=== PATIENT | female | born 1975 | race Two or more races ===

== ENCOUNTER 2017-09-16 05:30 | Emergency (ER) | payer OTHER ==
[~2017-09-16] VITALS: Ht 175.3 cm; Wt 142.9 kg
[~2017-09-16 05:30] MED LIST: ALLEGRA-D1 TAB.SR . PO; BUCALSEP SPRAY30 ML MM; CEFADROXIL500 MG PO; LOSARTAN POTASS50 MG; NAPROXEN SODIU550 MG PO; ORASEP SPRAY30 ML MM; ORPH100T PO
== END 2017-09-16 11:04 | disposition home or self-care (01) ==
LOC: ER 05:30
DX: J06.9 Acute upper respiratory infection, unspecified (principal)

== ENCOUNTER 2019-12-03 13:33 | Emergency (ER) | payer OTHER ==
[~2019-12-03] VITALS: Ht 172.7 cm; Wt 149.7 kg
[2019-12-03] MEDS ORDERED: MUPIROCIN15 GM TOP (17:01)
[2019-12-03] MEDS ORDERED: INTESTINEX680 M1 PO (17:01)
[2019-12-03] MEDS ORDERED: KETO10TA2 PO (17:01)
[2019-12-03] MEDS ORDERED: CLINDAMYCIN HC150 MG PO (17:01)
== END 2019-12-03 17:11 | disposition home or self-care (01) ==
LOC: ER 13:33
DX: T16.2XXA Foreign body in left ear, initial encounter (principal); T16.1XXA Foreign body in right ear, initial encounter; H60.13 Cellulitis of external ear, bilateral; X58.XXXA Exposure to other specified factors, initial encounter; Y93.89 Activity, other specified; Y92.89 Other specified places as the place of occurrence of the external cause; Y99.8 Other external cause status

== ENCOUNTER 2021-06-10 10:38 | Emergency (ER) | payer OTHER ==
[~2021-06-10] VITALS: Ht 175.3 cm; Wt 151.0 kg
[~2021-06-10 10:38] MED LIST changes: +CLINDAMYCIN HC150 MG PO; +INTESTINEX680 M1 PO; +KETO10TA2 PO; +MUPIROCIN15 GM TOP
== END 2021-06-10 11:49 | disposition home or self-care (01) ==
LOC: ER 10:38
DX: K29.70 Gastritis, unspecified, without bleeding (principal)